=== PATIENT | male | born 1990 | race Two or more races ===

== ENCOUNTER 2022-03-25 22:53 | Inpatient (IN) | payer BC ==
[~2022-03-25] VITALS: Ht 160 cm; Wt 117.0 kg
[2022-03-25] MEDS ORDERED: MORPHINE SULFATE 4 MG/ML CPJ (NOT FOR IM USE) IV STA (23:20)
[2022-03-25] MEDS ORDERED: ONDANSETRON HCL 4MG/2ML INJ IV STA (23:20)
[2022-03-25] MEDS ORDERED: SODIUM CHLORIDE 0.9% 1000ML BAG (SEPSIS BOLUS) IV ONE (23:30)
[2022-03-25] MEDS ORDERED: PIPERACILLIN/TAZ 3.375G PREMIX 50 ML IV ONE (23:30)
[2022-03-25] MEDS ORDERED: VANCOMYCIN 1G PREMIX 200 ML IV ONE (23:30)
[2022-03-25 23:35] LABS: HEMATOCRIT. 39.9 % (42.0-52.0); HEMOGLOBIN. 13.4 g/dL (14.0-18.0); MEAN CORPUSCULAR HEMOGLOBIN 29.4 pg (28.0-32.0); MEAN CORPUSCULAR VOLUME 87.5 fL (80.0-94.0); MEAN PLATELET VOLUME 10.5 fl (7.4-10.4); PLATELET 268 x1000/uL (130-400); RED BLOOD CELL COUNT 4.56 mill/uL (4.7-6.1); RED CELL DISTRIBUTION WIDTH 13.3 % (11.6-14.6)
[2022-03-25 23:40] LABS: PROTHROMBIN TIME 10.7 sec (9.6-11.0)
[2022-03-25 23:55] LABS: CHLORIDE 105 mEq/L (98-107)
[2022-03-26] MEDS ORDERED: ACETAMINOPHEN 325MG TABLET PO ONE
[2022-03-26 00:03] LABS: ETHANOL BLOOD < 10 mg/dL
[2022-03-26 02:10] LABS: CLARITY URINE CLEAR (CLEAR); COLOR URINE YELLOW (YELLOW); KETONES URINE TRACE (NEGATIVE); LEUKOCYTE ESTERASE URINE NEGATIVE (NEGATIVE); NITRITE URINE NEGATIVE (NEGATIVE); OCCULT BLOOD URINE NEGATIVE (NEGATIVE); PH URINE 5.5 (4.5-8.0); PROTEIN URINE 1+ (NEGATIVE); SPECIFIC GRAVITY URINE 1.044 (1.005-1.030)
[2022-03-26] MEDS ORDERED: MORPHINE SULFATE 2 MG/ML CPJ (NOT FOR IM USE) IV ONE (02:30)
[2022-03-26 02:33] LABS: *AMPHETAMINES SCREEN URINE NEGATIVE (NEGATIVE); *BARBITURATES SCREEN URINE NEGATIVE (NEGATIVE); *BENZODIAZEPINES SCREEN URINE NEGATIVE (NEGATIVE); *COCAINE SCREEN URINE NEGATIVE (NEGATIVE); CANNABINOID URINE SCREEN NEGATIVE (NEGATIVE); METHADONE URINE SCREEN NEGATIVE (NEGATIVE); OPIATES URINE SCREEN PRESUMTIVE POSITIVE (NEGATIVE); PHENCYCLIDINE URINE SCREEN NEGATIVE (NEGATIVE)
[2022-03-26] MEDS ORDERED: ACETAMINOPHEN 325MG TABLET PO NR (03:00)
[2022-03-26 03:26] LABS: ATYPICAL LYMPHOCYTES 1; PLATELET ESTIMATE NORMAL
[2022-03-26 09:20] VITALS: BP 123/72
[2022-03-26 09:50] VITALS: BP 123/72
[2022-03-26 12:00] VITALS: BP 136/71
[2022-03-26] MEDS ORDERED: ACETAMINOPHEN 325MG TABLET PO PRN (12:15)
[2022-03-26] MEDS ORDERED: BENZONATATE 100MG CAPSULE PO NR (12:15)
[2022-03-26] MEDS ORDERED: CLONIDINE 0.1MG TABLET PO PRN (12:15)
[2022-03-26] MEDS ORDERED: ONDANSETRON HCL 4MG/2ML INJ IV PRN (12:15)
[2022-03-26] MEDS ORDERED: MAGNESIUM/ALUMINUM HYDROXIDE/SIMETHICONE 30ML UDC PO PRN (12:15)
[2022-03-26] MEDS ORDERED: DOCUSATE SODIUM 100MG CAPSULE PO PRN (12:15)
[2022-03-26] MEDS ORDERED: DEXTROSE 50% WATER 50ML SYRINGE IV PRN ×2 (12:15)
[2022-03-26] MEDS: BLOOD SUGAR DIAGNOSTIC STRIP TEST SCH ×3 (12:20→21:21)
[2022-03-26 13:10] LABS: BASOPHILS % 0.3 % (0.0-2.0); EOSINOPHILS % 0.4 % (0.0-5.0); HEMATOCRIT. 32.4 % (42.0-52.0); HEMOGLOBIN. 10.8 g/dL (14.0-18.0); LYMPHOCYTES % 29.8 % (20.0-50.0); MEAN CORPUSCULAR HEMOGLOBIN 29.3 pg (28.0-32.0); MEAN CORPUSCULAR VOLUME 87.6 fL (80.0-94.0); MEAN PLATELET VOLUME 9.7 fl (7.4-10.4); MONOCYTES % 7.6 % (2.0-8.0); NEUTROPHILS % 61.9 % (40.0-76.0); PLATELET 200 x1000/uL (130-400); RED BLOOD CELL COUNT 3.69 mill/uL (4.7-6.1); RED CELL DISTRIBUTION WIDTH 13.4 % (11.6-14.6)
[2022-03-26 13:21] LABS: CHLORIDE 109 mEq/L (98-107)
[2022-03-26] MEDS: INSULIN LISPRO 100 UNITS/ML SUBCUT SCH ×3 (13:36→21:36)
[2022-03-26 16:02] VITALS: BP 125/74
[2022-03-26] MEDS: HYDROCODONE/ACETAMINOPHEN 5/325MG TABLET PO PRN ×2 (16:04→21:35)
[2022-03-26 20:00] VITALS: BP 127/70
[2022-03-26] MEDS: BENZONATATE 100MG CAPSULE PO PRN (21:33)
[2022-03-27] VITALS (7 sets, daily range): BP systolic 113–146; BP diastolic 69–83
[2022-03-27] MEDS: HYDROCODONE/ACETAMINOPHEN 5/325MG TABLET PO PRN ×3 (06:05→22:02)
[2022-03-27] MEDS: BLOOD SUGAR DIAGNOSTIC STRIP TEST SCH ×4 (07:20→21:24)
[2022-03-27 07:22] LABS: CHLORIDE 106 mEq/L (98-107)
[2022-03-27 07:25] LABS: HEMATOCRIT. 28.2 % (42.0-52.0); HEMOGLOBIN. 9.6 g/dL (14.0-18.0); MEAN CORPUSCULAR HEMOGLOBIN 29.6 pg (28.0-32.0); MEAN CORPUSCULAR VOLUME 86.9 fL (80.0-94.0); PLATELET 172 x1000/uL (130-400); RED BLOOD CELL COUNT 3.24 mill/uL (4.7-6.1); RED CELL DISTRIBUTION WIDTH 13.5 % (11.6-14.6)
[2022-03-27 07:37] LABS: T4 FREE 1.13 ng/dL (0.76-1.46)
[2022-03-27] MEDS: INSULIN LISPRO 100 UNITS/ML SUBCUT SCH ×4 (08:00→22:04)
[2022-03-27] MEDS: OMEPRAZOLE 20MG CAPSULE EXTENDED RELEASE PO SCH (09:13)
[2022-03-27] MEDS: BENZONATATE 100MG CAPSULE PO PRN ×2 (09:14→18:38)
[2022-03-27] MEDS ORDERED: TRAM50TA3 MT (09:16)
[2022-03-27] MEDS ORDERED: LANC-867 TP (09:16)
[2022-03-27] MEDS ORDERED: BLOO-1482 MC (09:16)
[2022-03-27] MEDS ORDERED: INSLIS SUBCUT (09:16)
[2022-03-27] MEDS ORDERED: BENZ100C86 PO (09:16)
[2022-03-27] MEDS ORDERED: SYRI-219 SQ (09:16)
[2022-03-27] MEDS ORDERED: LANTUSUD SUBCUT (09:16)
[2022-03-27 14:51] LABS: PLATELET ESTIMATE NORMAL
[2022-03-27] MEDS ORDERED: NALOXONE HCL 0.4MG/ML VIAL IV PRN (20:00)
[2022-03-28] VITALS: BP 119/67
[2022-03-28] MEDS: HYDROCODONE/ACETAMINOPHEN 5/325MG TABLET PO PRN ×4 (01:43→16:27)
[2022-03-28] MEDS: BENZONATATE 100MG CAPSULE PO PRN ×2 (01:43→11:24)
[2022-03-28 04:00] VITALS: BP 113/67
[2022-03-28] MEDS: BLOOD SUGAR DIAGNOSTIC STRIP TEST SCH ×2 (06:02→12:20)
[2022-03-28 06:16] LABS: HEMATOCRIT. 28.6 % (42.0-52.0); HEMOGLOBIN. 9.7 g/dL (14.0-18.0); MEAN CORPUSCULAR HEMOGLOBIN 29.5 pg (28.0-32.0); MEAN CORPUSCULAR VOLUME 87.2 fL (80.0-94.0); MEAN PLATELET VOLUME 9.7 fl (7.4-10.4); PLATELET 193 x1000/uL (130-400); RED BLOOD CELL COUNT 3.28 mill/uL (4.7-6.1); RED CELL DISTRIBUTION WIDTH 13.5 % (11.6-14.6)
[2022-03-28 06:31] LABS: CHLORIDE 106 mEq/L (98-107)
[2022-03-28 10:20] LABS: PLATELET ESTIMATE NORMAL
[2022-03-28] MEDS: OMEPRAZOLE 20MG CAPSULE EXTENDED RELEASE PO SCH (10:57)
[2022-03-28] MEDS: INSULIN LISPRO 100 UNITS/ML SUBCUT SCH ×2 (11:03→13:46)
[2022-03-28 17:45] VITALS: BP 135/74
== END 2022-03-28 18:26 | disposition home or self-care (01) | DRG 605 ==
LOC: ER 22:53 → 6WST 03-26 02:22 → EDBEDREQSVC 03-26 02:24 → EDBEDREQ 03-26 02:24 → EDBEDREQTM 03-26 02:24 → ENRESERV 03-26 08:28
PROVIDERS: ADMIT Internal Medicine Nephrology; ATTEND Internal Medicine Nephrology
DX: S30.1XXA Contusion of abdominal wall, initial encounter (principal); E87.2 Acidosis; R65.10 Systemic inflammatory response syndrome (SIRS) of non-infectious origin without acute organ dysfunction; R58 Hemorrhage, not elsewhere classified; E11.65 Type 2 diabetes mellitus with hyperglycemia; R74.01 Elevation of levels of liver transaminase levels; Z20.822 Contact with and (suspected) exposure to COVID-19; X58.XXXA Exposure to other specified factors, initial encounter; Y93.89 Activity, other specified; Y92.89 Other specified places as the place of occurrence of the external cause; Y99.8 Other external cause status; Z79.4 Long term (current) use of insulin; D72.829 Elevated white blood cell count, unspecified
CPT/HCPCS: 36415; 71045; 74176; 76700; 80048; 80053; 80076; 80305; 80320; 81003; 82962; 83036; 83605; 83735; 84100; 84145; 84439; 84443; 85018; 85025; 87426; 93005; 93970; 99291; C9803; J1815; J2270; J2405; J2543; J3370; J7030; G0480